=== PATIENT | male | born 1950 | race Caucasian/White ===

== ENCOUNTER 2018-08-12 10:50 | Emergency (ER) | payer MEDICARE, OTHER ==
[~2018-08-12] VITALS: Ht 167.6 cm; Wt 86.2 kg
[2018-08-12 11:00] VITALS: BP 137/95
[2018-08-12] MEDS ORDERED: HYDROCODONE/APAP 5/325MG 1 EACH TABLET PO ONE (11:30)
[2018-08-12] MEDS ORDERED: HYDROCODONE/APAP 5/325MG 1 EACH TABLET ONE (11:35)
== END 2018-08-12 12:53 | disposition home or self-care (01) ==
LOC: ER 10:54
DX: S00.31XA Abrasion of nose, initial encounter (principal); M54.5 Low back pain; M79.651 Pain in right thigh; R51 Headache; Z95.5 Presence of coronary angioplasty implant and graft; Z88.0 Allergy status to penicillin; Z95.1 Presence of aortocoronary bypass graft; V09.9XXA Pedestrian injured in unspecified transport accident, initial encounter; Y92.410 Unspecified street and highway as the place of occurrence of the external cause; Y93.89 Activity, other specified; Y99.8 Other external cause status
CPT/HCPCS: 70160-TC; 70450-TC; 72110-TC; 72125-TC; 72170-TC; 73552